=== PATIENT | male | born 1965 | race African-American/Black ===

== ENCOUNTER 2017-03-13 11:47 | Inpatient (IN) | payer BC, OTHER ==
[2017-03-13 12:49] VITALS: BMI 23.7
--- NOTE | 2017-03-13 17:33 | HP ---
COWS - Scale Resting Pulse: 0= [place] 80 or Below Sweatin= Chills/Flushing Restless Observation: 3= Extraneous Movement Pupil Size: 0= Normal to Room Light Bone or Joint Aches: 2= Severe Diffuse Aches Runny Nose/ Eye Tearin= Runny Nose/Eyes GI Upset > 30mins: 2= Nausea/Diarrhea Tremor Observation: 2= Slight Tremor Visible Yawning Observation: 0= None Anxiety or Irritability: 2=Irritable/Anxious Goose Flesh Skin: 0=Smooth Skin COWS Score: 14 Admission [facility] Chief Complaint: WITHDRAWAL SX Allergies/Adverse Reactions: Allergies Allergy/AdvReac Type Severity Reaction Status Date / Time No Known Allergies Allergy Verified 03/13/17 17:00 History of Present Illness: 51 YEARS OLD MALE WITH LONG HISTORY OF OPIATE NICOTINE DEPENDENCE DENIES MEDICAL ISSUE HAS DEPRESSION IS ADMITTED TO DETOX Exam Limitations: No Limitations - Ebola screening Have you traveled outside of the country in the last 21 days: No Have you had contact with anyone from an Ebola affected area: No Have you been sick,other than usual withdrawal symptoms: No Do you have a fever: No - Review of Systems Constitutional: Loss of Appetite, Changes in sleep, Unintentional Wgt. Loss, Unexplained wgt Loss EENT: reports: No Symptoms Reported Respiratory: reports: No Symptoms reported Cardiac: reports: No Symptoms Reported GI: reports: Nausea, Poor Appetite, Poor Fluid Intake, Abdominal cramping : reports: No Symptoms Reported Musculoskeletal: reports: Back Pain, Joint Pain, Muscle Pain, Neck Pain Integumentary: reports: Rash (LOWER BACK) Neuro: reports: Tremors Endocrine: reports: No Symptoms Reported Hematology: reports: No Symptoms Reported Psychiatric: reports: Judgement Intact, Orientated x3, Depressed Other Systems: Reviewed and Negative Patient History - Patient Medical History Hx Anemia: No Hx Asthma: No Hx Chronic Obstructive Pulmonary Disease (COPD): No Hx Cancer: No Hx Cardiac Disorders: No Hx Congestive Heart Failure: No Hx Hypertension: No Hx Hypercholesterolemia: No Hx Pacemaker: No HX Cerebrovascular Accident: No Hx Seizures: No Hx Dementia: No Hx Diabetes: No Hx Gastrointestinal Disorders: No Hx Liver Disease: No Hx Genitourinary Disorders: No Hx Sexually Transmitted Disorders: No Hx Renal Disease (ESRD): No Hx Thyroid Disease: No Hx Human Immunodeficiency Virus (HIV): No Hx Hepatitis C: No Hx Depression: Yes Hx Suicide Attempt: No Hx Bipolar Disorder: No Hx Schizophrenia: No - Patient Surgical History Past Surgical History: No Hx Neurologic Surgery: No Hx Cataract Extraction: No Hx Cardiac Surgery: No Hx Lung Surgery: No Hx Breast Surgery: No Hx Breast Biopsy: No Hx Abdominal Surgery: No Hx Appendectomy: No Hx Cholecystectomy: No Hx Genitourinary Surgery: No Hx Orthopedic Surgery: No - PPD History Previous Implant?: Yes Documented Results: Negative w/o proof Implanted On Prior R Admission?: No PPD to be Administered?: Yes - Smoking Cessation Smoking history: Current every day smoker Have you smoked in the past 12 months: Yes Aproximately how many cigarettes per day: 10 Cigars Per Day: 0 Hx Chewing Tobacco Use: No Initiated information on smoking cessation: Yes 'Breaking Loose' booklet given: 03/13/17 - Substance & Tx. History Hx Alcohol Use: No Hx Substance Use: Yes Substance Use Type: Opiates Hx Substance Use Treatment: Yes (01/2017 [facility]) - Substances Abused Heroin Route: Oral Frequency: Daily Amount used: 3 BAGS Age of first use: 20 Date of Last Use: 03/13/17 Family Disease History - Family Disease History Family Disease History: Heart Disease: Mother (), Other: Mother Admission Physical Exam S - Vital Signs Vital Signs: Vital Signs - 24 hr 03/13/17 12:47 Temperature 98.8 F Pulse Rate 75 Respiratory 18 Rate Blood Pressure 154/78 - Physical General Appearance: Yes: Appropriately Dressed, Mild Distress, Thin, Tremorous, Irritable, Sweating, Anxious HEENTM: Yes: Hearing grossly Normal, Normal ENT Inspection, Normocephalic, Normal Voice Respiratory: Yes: Chest Non-Tender, Lungs Clear, Normal Breath Sounds, No Respiratory Distress, No Accessory Muscle Use Neck: Yes: Supple, Trachea in good position Breast: Yes: Breasts Symetrical Cardiology: Yes: Regular Rhythm, Regular Rate, S1, S2 Abdominal: Yes: Non Tender, Soft Genitourinary: Yes: Within Normal Limits Back: Yes: Normal Inspection Musculoskeletal: Yes: full range of Motion, Gait Steady, Back pain, Muscle Pain Extremities: Yes: Normal Range of Motion, Non-Tender, Tremors Neurological: Yes: Fully Oriented, Alert, Motor Strength 5/5, Normal Response, Depressed Affect Integumentary: Yes: Warm, Rash (LOWER BACK) Lymphatic: Yes: Within Normal Limits - Diagnostic (1) Opioid dependence with withdrawal Current Visit: Yes Status: Acute (2) Weight loss Current Visit: Yes Status: Acute (3) Fungal rash of trunk Current Visit: Yes Status: Acute (4) Depression (emotion) Current Visit: Yes Status: Suspected Qualifiers: Depression Type: dysthymia Qualified Code(s): F34.1 - Dysthymic disorder (5) Nicotine dependence Current Visit: Yes Status: Acute Qualifiers: Nicotine product type: cigarettes Substance use status: in withdrawal Qualified Code(s): F17.213 - Nicotine dependence, cigarettes, with withdrawal Cleared for Admission S - Detox or Rehab [facility] Level of Care: Medically Managed Detox Regimen/Protocol: Methadone S Breath Alcohol Content Breath Alcohol Content: 0 Urine Drug Screen - Results Drug Screen Negative: No Urine Drug Screen Results: OPI-Opiates
[2017-03-13] MEDS ORDERED: IBUPROFEN 400 MG TABLET (FP) PO PRN (17:38)
[2017-03-13] MEDS ORDERED: LOPERAMIDE HCL 2 MG CAPSULE PO PRN (17:38)
[2017-03-13] MEDS ORDERED: MAG HYDROX/AL HYDROX/SIMETH 30 ML UNIT-DOSE CUP PO PRN (17:38)
[2017-03-13] MEDS ORDERED: P-EPHED 60MG/TRIPROLIDI 2.5MG TABLET PO PRN (17:38)
[2017-03-13] MEDS ORDERED: guaiFENesin/D-METHORPHAN HB 10 ML UNIT-DOSE CUPS PO PRN (17:38)
[2017-03-13] MEDS ORDERED: MAGNESIUM CITRATE 300 ML BOTTLE PO PRN (17:38)
[2017-03-13] MEDS ORDERED: diphenhydrAMINE HCL 50 MG CAPSULE PO PRN (17:38)
[2017-03-13] MEDS ORDERED: METHADONE HCL 10 MG TABLET (FOR DETOX USE ONLY) PO ONE ×2 (17:38→23:00)
[2017-03-13] MEDS ORDERED: MENTHOL/PHENOL 1 EACH UD MM PRN (17:38)
[2017-03-13] MEDS ORDERED: ACETAMINOPHEN 325 MG TABLET (FP) PO PRN (17:38)
[2017-03-13] MEDS ORDERED: MAGNESIUM HYDROX 2400MG/30ML ORAL SUSPENSION 30 ML CUP PO PRN (17:38)
[2017-03-13] MEDS ORDERED: NICOTINE POLACRILEX 2 MG GUM BC PRN (17:38)
[2017-03-13] MEDS: diazePAM 5 MG TABLET PO PRN (19:16)
[2017-03-13] MEDS: THIAMINE HCL 100 MG TABLET (FP) PO SCH (22:20)
[2017-03-13] MEDS: CLOTRIMAZOLE/BETAMET DIPROP 15 GM TUBE TP SCH (23:33)
--- NOTE | 2017-03-14 09:57 | PN ---
BHS COWS - Scale Resting Pulse: 0= [place] 80 or Below Sweatin= Chills/Flushing Restless Observation: 3= Extraneous Movement Pupil Size: 2= Moderately Dilated Bone or Joint Aches: 4=Acute Joint/Muscle Pain Runny Nose/ Eye Tearin= Nasal Congestion GI Upset > 30mins: 1= Stomach Cramp Tremor Observation of Outstretched Hands: 1= Tremor [place], Not Seen Yawning Observation: 2= >3x During Session Anxiety or Irritability: 2=Irritable/Anxious Goose Flesh Skin: 0=Smooth Skin COWS Score: 17 BHS Progress Note (SOAP) Subjective: ANXIETY,SWEATS, INTERMITTENT SLEEP. DENIED HX HTN. Objective: 03/14/17 09:59 Vital Signs Temperature 97.4 F L 03/14/17 09:27 Pulse Rate 71 03/14/17 09:27 Respiratory Rate 18 03/14/17 09:27 Blood Pressure 159/100 03/14/17 09:27 O2 Sat by Pulse Oximetry (%) LABS PENDING Assessment: 03/14/17 09:59 WITHDRAWAL SX Plan: CONTINUE DETOX START CLONIDINE 0.1 MG PO BID
[2017-03-14] MEDS ORDERED: METHADONE HCL 10 MG TABLET (FOR DETOX USE ONLY) PO ONE (10:00)
[2017-03-14 10:08] LABS: MCH 29.8 pg (25.7-33.7); MCHC 31.9 g/dl (32.0-35.9); MEAN CELL VOLUME 93.4 fl (80-96); MEAN PLT VOLUME 9.2 fl (7.5-11.1); PLATELET COUNT 218 K/MM3 (134-434); RDW 15.3 % (11.9-15.9); WHITE BLOOD COUNT 6.3 K/mm3 (4.0-10.0)
[2017-03-14] MEDS: NICOTINE 14 MG/24 HOURS TOPICAL PATCH TD SCH (10:19)
[2017-03-14] MEDS: PRENATAL VITAMINS W/ FOLIC ACID TABLET (FP) PO SCH (10:19)
[2017-03-14] MEDS: CLOTRIMAZOLE/BETAMET DIPROP 15 GM TUBE TP SCH ×2 (10:19→22:13)
[2017-03-14] MEDS: diazePAM 5 MG TABLET PO PRN (10:22)
[2017-03-14 10:43] LABS: ALBUMIN 3.3 g/dl (3.4-5.0); ALK PHOS 58 U/L (45-117); ANION GAP 9 (8-16); BILIRUBIN,TOTAL 0.4 mg/dL (0.2-1.0); CALCIUM 8.7 mg/dL (8.5-10.1); CO2 27 mmol/L (21-32); CREATININE 0.9 mg/dL (0.7-1.3); GLUCOSE,RANDOM 157 mg/dL (74-106); SGOT/AST 13 U/L (15-37); SGPT/ALT 21 U/L (12-78); TOT PROT 6.3 g/dl (6.4-8.2)
[2017-03-14 12:14] LABS: HIV 1 & 2 AB NEGATIVE; HIV 1 AGp24 NEGATIVE
[2017-03-14] MEDS: cloNIDine HCL 0.1 MG TABLET PO SCH ×2 (12:18→22:13)
--- NOTE | 2017-03-14 12:58 | EKG ---
Test Reason : Blood Pressure : / mmHG Vent. Rate : 075 BPM Atrial Rate : 075 BPM P-R Int : 160 ms QRS Dur : 094 ms QT Int : 418 ms P-R-T Axes : 072 070 023 degrees QTc Int : 466 ms NORMAL SINUS RHYTHM VOLTAGE CRITERIA FOR LEFT VENTRICULAR HYPERTROPHY ABNORMAL ECG NO PREVIOUS ECGS AVAILABLE Confirmed by LEONEL HOLT, CHULA ([id number]) on 03/14/2017 12:58:24 PM Referred By: Rajesh Mishra Confirmed By:CHULA CASTANEDA MD
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
[2017-03-14] MEDS: traZODone HCL 50 MG TABLET (FP) PO SCH (22:13)
[2017-03-14] MEDS: THIAMINE HCL 100 MG TABLET (FP) PO SCH (22:16)
[2017-03-15] MEDS ORDERED: METHADONE HCL 5 MG TABLET (FOR DETOX USE ONLY) PO ONE (10:00)
[2017-03-15] MEDS: cloNIDine HCL 0.1 MG TABLET PO SCH ×2 (10:22→22:09)
[2017-03-15] MEDS: PRENATAL VITAMINS W/ FOLIC ACID TABLET (FP) PO SCH (10:22)
[2017-03-15] MEDS: diazePAM 5 MG TABLET PO PRN ×2 (10:23→22:09)
[2017-03-15] MEDS: CLOTRIMAZOLE/BETAMET DIPROP 15 GM TUBE TP SCH ×2 (10:23→22:51)
[2017-03-15] MEDS: NICOTINE 14 MG/24 HOURS TOPICAL PATCH TD SCH (10:23)
--- NOTE | 2017-03-15 11:16 | PN ---
BHS COWS - Scale Resting Pulse: 0= [place] 80 or Below Sweatin= Chills/Flushing Restless Observation: 3= Extraneous Movement Pupil Size: 2= Moderately Dilated Bone or Joint Aches: 4=Acute Joint/Muscle Pain Runny Nose/ Eye Tearin= None GI Upset > 30mins: 0= None Tremor Observation of Outstretched Hands: 1= Tremor [place], Not Seen Yawning Observation: 1= 1-2x During Session Anxiety or Irritability: 2=Irritable/Anxious Goose Flesh Skin: 0=Smooth Skin COWS Score: 14 BHS Progress Note (SOAP) Subjective: ANXIETY,SWEATS,FATIGUE. Objective: 03/15/17 11:18 Vital Signs Temperature 98.0 F 03/15/17 10:12 Pulse Rate 79 03/15/17 10:12 Respiratory Rate 18 03/15/17 10:12 Blood Pressure 141/96 03/15/17 10:12 O2 Sat by Pulse Oximetry (%) Laboratory Last Values WBC 6.3 K/mm3 (4.0-10.0) 03/14/17 07:00 RBC 3.92 M/mm3 (4.00-5.60) L 03/14/17 07:00 Hgb 11.7 GM/dL (11.7-16.9) 03/14/17 07:00 Hct 36.7 % (35.4-49) 03/14/17 07:00 MCV 93.4 fl (80-96) 03/14/17 07:00 MCH 29.8 pg (25.7-33.7) 03/14/17 07:00 MCHC 31.9 g/dl (32.0-35.9) L 03/14/17 07:00 RDW 15.3 % (11.9-15.9) 03/14/17 07:00 Plt Count 218 K/MM3 (134-434) 03/14/17 07:00 MPV 9.2 fl (7.5-11.1) 03/14/17 07:00 Sodium 139 mmol/L (136-145) 03/14/17 07:00 Potassium 3.9 mmol/L (3.5-5.1) 03/14/17 07:00 Chloride 103 mmol/L (98-107) 03/14/17 07:00 Carbon Dioxide 27 mmol/L (21-32) 03/14/17 07:00 Anion Gap 9 (8-16) 03/14/17 07:00 BUN 12 mg/dL (7-18) 03/14/17 07:00 Creatinine 0.9 mg/dL (0.7-1.3) 03/14/17 07:00 Creat Clearance w eGFR > 60 (>60) 03/14/17 07:00 Random Glucose 157 mg/dL (74-106) H 03/14/17 07:00 Calcium 8.7 mg/dL (8.5-10.1) 03/14/17 07:00 Total Bilirubin 0.4 mg/dL (0.2-1.0) 03/14/17 07:00 AST 13 U/L (15-37) L 03/14/17 07:00 ALT 21 U/L (12-78) 03/14/17 07:00 Alkaline Phosphatase 58 U/L (45-117) 03/14/17 07:00 Total Protein 6.3 g/dl (6.4-8.2) L 03/14/17 07:00 Albumin 3.3 g/dl (3.4-5.0) L 03/14/17 07:00 RPR Titer Nonreactive (NONREACTIVE) 03/14/17 07:00 Hepatitis C Antibody <0.1 s/co ratio (0.0-0.9) 03/13/17 07:00 HIV 1&2 Antibody Screen Negative 03/14/17 07:00 HIV P24 Antigen Negative 03/14/17 07:00 Assessment: 03/15/17 11:18 WITHDRAWAL SX Plan: CONTINUE DETOX
[2017-03-15] MEDS: traZODone HCL 50 MG TABLET (FP) PO SCH (22:09)
[2017-03-15] MEDS: THIAMINE HCL 100 MG TABLET (FP) PO SCH (22:09)
[2017-03-16] MEDS ORDERED: METHADONE HCL 5 MG TABLET (FOR DETOX USE ONLY) PO ONE (10:00)
[2017-03-16] MEDS: PRENATAL VITAMINS W/ FOLIC ACID TABLET (FP) PO SCH (10:15)
[2017-03-16] MEDS: cloNIDine HCL 0.1 MG TABLET PO SCH ×2 (10:15→22:17)
[2017-03-16] MEDS: NICOTINE 14 MG/24 HOURS TOPICAL PATCH TD SCH (10:16)
[2017-03-16] MEDS: CLOTRIMAZOLE/BETAMET DIPROP 15 GM TUBE TP SCH ×2 (10:16→22:19)
[2017-03-16] MEDS: diazePAM 5 MG TABLET PO PRN (10:16)
--- NOTE | 2017-03-16 10:43 | PN ---
BHS Progress Note (SOAP) Subjective: ANXIETY,SWEATS. OOB AMBULATING ON HALLWAY. ALERT O X 3. NAD. Objective: 03/16/17 10:42 Vital Signs Temperature 96.8 F L 03/16/17 10:34 Pulse Rate 87 03/16/17 10:34 Respiratory Rate 18 03/16/17 10:34 Blood Pressure 139/90 03/16/17 10:34 O2 Sat by Pulse Oximetry (%) Laboratory Last Values WBC 6.3 K/mm3 (4.0-10.0) 03/14/17 07:00 RBC 3.92 M/mm3 (4.00-5.60) L 03/14/17 07:00 Hgb 11.7 GM/dL (11.7-16.9) 03/14/17 07:00 Hct 36.7 % (35.4-49) 03/14/17 07:00 MCV 93.4 fl (80-96) 03/14/17 07:00 MCH 29.8 pg (25.7-33.7) 03/14/17 07:00 MCHC 31.9 g/dl (32.0-35.9) L 03/14/17 07:00 RDW 15.3 % (11.9-15.9) 03/14/17 07:00 Plt Count 218 K/MM3 (134-434) 03/14/17 07:00 MPV 9.2 fl (7.5-11.1) 03/14/17 07:00 Sodium 139 mmol/L (136-145) 03/14/17 07:00 Potassium 3.9 mmol/L (3.5-5.1) 03/14/17 07:00 Chloride 103 mmol/L (98-107) 03/14/17 07:00 Carbon Dioxide 27 mmol/L (21-32) 03/14/17 07:00 Anion Gap 9 (8-16) 03/14/17 07:00 BUN 12 mg/dL (7-18) 03/14/17 07:00 Creatinine 0.9 mg/dL (0.7-1.3) 03/14/17 07:00 Creat Clearance w eGFR > 60 (>60) 03/14/17 07:00 Random Glucose 157 mg/dL (74-106) H 03/14/17 07:00 Calcium 8.7 mg/dL (8.5-10.1) 03/14/17 07:00 Total Bilirubin 0.4 mg/dL (0.2-1.0) 03/14/17 07:00 AST 13 U/L (15-37) L 03/14/17 07:00 ALT 21 U/L (12-78) 03/14/17 07:00 Alkaline Phosphatase 58 U/L (45-117) 03/14/17 07:00 Total Protein 6.3 g/dl (6.4-8.2) L 03/14/17 07:00 Albumin 3.3 g/dl (3.4-5.0) L 03/14/17 07:00 RPR Titer Nonreactive (NONREACTIVE) 03/14/17 07:00 Hepatitis C Antibody <0.1 s/co ratio (0.0-0.9) 03/13/17 07:00 HIV 1&2 Antibody Screen Negative 03/14/17 07:00 HIV P24 Antigen Negative 03/14/17 07:00 Assessment: 03/16/17 10:42 WITHDRAWAL SX Plan: CONTINUE DETOX
[2017-03-16] MEDS: THIAMINE HCL 100 MG TABLET (FP) PO SCH (22:17)
[2017-03-16] MEDS: traZODone HCL 50 MG TABLET (FP) PO SCH (22:17)
[2017-03-17 09:51] VITALS: BP 129/86; PULSE 84; TEMP 97.2
[2017-03-17] MEDS ORDERED: METHADONE HCL 10 MG TABLET (FOR DETOX USE ONLY) PO ONE (10:00)
[2017-03-17] MEDS: PRENATAL VITAMINS W/ FOLIC ACID TABLET (FP) PO SCH (10:19)
[2017-03-17] MEDS: cloNIDine HCL 0.1 MG TABLET PO SCH (10:19)
[2017-03-17] MEDS: CLOTRIMAZOLE/BETAMET DIPROP 15 GM TUBE TP SCH (10:20)
[2017-03-17] MEDS: NICOTINE 14 MG/24 HOURS TOPICAL PATCH TD SCH (10:20)
[2017-03-17] MEDS ORDERED: METHADONE HCL 5 MG TABLET (FOR DETOX USE ONLY) PO ONE (11:00)
[2017-03-18] MEDS ORDERED: METHADONE HCL 5 MG TABLET (FOR DETOX USE ONLY) PO ONE (06:00)
--- NOTE | 2017-03-18 15:14 | DS ---
[facility] Detox Discharge Summary Admission Date: 03/13/17 Discharge Date: 03/17/17 - History Present History: Opioid Dependence Additional Comments: PATIENT GOING TO [facility] FOR AFTERCARE. PATIENT ADVISED TO FOLLOW -UP THERE PER DISCHARGE ARRANGEMENT. PATIENT DISCHARGED FROM DETOX UNIT IN STABLE MEDICAL CONDITION. Pertinent Past History: Insomnia, Depression, Fungal Rash of trunk. - Physical Exam Results Vital Signs: Vital Signs Temperature 97.2 F L 03/17/17 09:50 Pulse Rate 84 03/17/17 09:50 Respiratory Rate 18 03/17/17 09:50 Blood Pressure 129/86 03/17/17 09:50 O2 Sat by Pulse Oximetry (%) Pertinent Admission Physical Exam Findings: WITHDRAWAL SYMPTOMS. Laboratory Tests 03/13/17 03/14/17 03/14/17 07:00 07:00 07:00 WBC 6.3 RBC 3.92 L Hgb 11.7 Hct 36.7 MCV 93.4 MCH 29.8 MCHC 31.9 L RDW 15.3 Plt Count 218 MPV 9.2 Sodium Potassium Chloride Carbon Dioxide Anion Gap BUN Creatinine Creat Clearance w eGFR Random Glucose Calcium Total Bilirubin AST ALT Alkaline Phosphatase Total Protein Albumin RPR Titer Hepatitis C Antibody <0.1 HIV 1&2 Antibody Screen Negative HIV P24 Antigen Negative 03/14/17 03/14/17 07:00 07:00 WBC RBC Hgb Hct MCV MCH MCHC RDW Plt Count MPV Sodium 139 Potassium 3.9 Chloride 103 Carbon Dioxide 27 Anion Gap 9 BUN 12 Creatinine 0.9 Creat Clearance w eGFR > 60 Random Glucose 157 H Calcium 8.7 Total Bilirubin 0.4 AST 13 L ALT 21 Alkaline Phosphatase 58 Total Protein 6.3 L Albumin 3.3 L RPR Titer Nonreactive Hepatitis C Antibody HIV 1&2 Antibody Screen HIV P24 Antigen LABS NOTED. - Treatment Hospital Course: Detox Protocol Followed, Detoxed Safely, Responded well, Discharged Condition Good, Rehab Referral Accepted Patient has Accepted a Rehab Referral to: [facility]. - Medication Discharge Medications: Ambulatory Orders Trazodone HCl [Desyrel -] 50 mg PO HS #30 tablet 03/14/17 - Diagnosis (1) Fungal rash of trunk Status: Acute (2) Insomnia Status: Acute Qualifiers: Insomnia type: unspecified Qualified Code(s): G47.00 - Insomnia, unspecified (3) Nicotine dependence Status: Chronic Qualifiers: Nicotine product type: cigarettes Substance use status: in withdrawal Qualified Code(s): F17.213 - Nicotine dependence, cigarettes, with withdrawal (4) Opioid dependence with withdrawal Status: Acute (5) Substance induced mood disorder Status: Acute (6) Weight loss Status: Acute (7) Depression (emotion) Status: Suspected Qualifiers: Depression Type: dysthymia Qualified Code(s): F34.1 - Dysthymic disorder - AMA Did Patient Leave Against Medical Advice: No
== END 2017-03-17 14:12 | disposition other institution (70) | DRG 773 ==
LOC: YASAS 11:47 → Y3N 18:36
PROVIDERS: ADMIT Internal Medicine; ATTEND Internal Medicine
PROC: HZ2ZZZZ Detoxification Services for Substance Abuse Treatment (ICD-10-PCS; principal; 2017-03-17)
DX: F11.23 Opioid dependence with withdrawal (principal); F17.213 Nicotine dependence, cigarettes, with withdrawal; F19.24 Other psychoactive substance dependence with psychoactive substance-induced mood disorder; G47.00 Insomnia, unspecified; B49 Unspecified mycosis
CPT/HCPCS: 36415; 80053; 85027; 86593; 86803; 87389; 93005; 93010

== ENCOUNTER 2017-03-17 15:13 | Inpatient (IN) | payer BC ==
[2017-03-17] MEDS ORDERED: MAG HYDROX/AL HYDROX/SIMETH 30 ML UNIT-DOSE CUP PO PRN (15:33)
[2017-03-17] MEDS ORDERED: IBUPROFEN 400 MG TABLET (FP) PO PRN (15:33)
[2017-03-17] MEDS ORDERED: hydrOXYzine PAMOATE 25 MG CAPSULE (FP) PO PRN (15:33)
[2017-03-17] MEDS ORDERED: LOPERAMIDE HCL 2 MG CAPSULE PO PRN (15:33)
[2017-03-17] MEDS ORDERED: MAGNESIUM HYDROX 2400MG/30ML ORAL SUSPENSION 30 ML CUP PO PRN (15:33)
[2017-03-17] MEDS ORDERED: MENTHOL/PHENOL 1 EACH UD MM PRN (15:33)
[2017-03-17] MEDS ORDERED: guaiFENesin/D-METHORPHAN HB 10 ML UNIT-DOSE CUPS PO PRN (15:33)
[2017-03-17] MEDS ORDERED: ACETAMINOPHEN 325 MG TABLET (FP) PO PRN (15:33)
[2017-03-17] MEDS ORDERED: P-EPHED 60MG/TRIPROLIDI 2.5MG TABLET PO PRN (15:33)
[2017-03-17] MEDS ORDERED: MAGNESIUM CITRATE 300 ML BOTTLE PO PRN (15:33)
--- NOTE | 2017-03-17 15:38 | HP ---
TIFFANY HOLT Rehab Assess/Revision - Admission History Admitted to Rehab from: [facility] Date of Admission to Rehab: 03/17/17 - Vital signs Vital Signs: Vital Signs Period Temp Pulse Resp BP Sys/Justice Pulse Ox Last 24 Hr 98.3 F-98.3 F 94-94 18-18 122-122/74-74 - Findings Detox History & Physical reviewed: Yes Concur with findings: Yes Comments/Additional Findings: FOR REHAB PROTOCOL
[2017-03-17] MEDS: traZODone HCL 50 MG TABLET (FP) PO SCH (21:37)
[2017-03-17] MEDS: diphenhydrAMINE HCL 50 MG CAPSULE PO PRN (21:37)
[2017-03-17] MEDS: THIAMINE HCL 100 MG TABLET (FP) PO SCH (21:37)
[2017-03-17] MEDS: CLOTRIMAZOLE/BETAMET DIPROP TOPICAL CREAM 45 GM TUBE TP SCH (22:53)
[2017-03-18] MEDS: PRENATAL VITAMINS W/ FOLIC ACID TABLET (FP) PO SCH (10:28)
[2017-03-18] MEDS: NICOTINE 14 MG/24 HOURS TOPICAL PATCH TD SCH (10:29)
[2017-03-18] MEDS: CLOTRIMAZOLE/BETAMET DIPROP TOPICAL CREAM 45 GM TUBE TP SCH ×2 (10:29→21:55)
[2017-03-18] MEDS: diphenhydrAMINE HCL 50 MG CAPSULE PO PRN (21:55)
[2017-03-18] MEDS: THIAMINE HCL 100 MG TABLET (FP) PO SCH (21:55)
[2017-03-18] MEDS: traZODone HCL 50 MG TABLET (FP) PO SCH (21:55)
[2017-03-19] MEDS: NICOTINE 14 MG/24 HOURS TOPICAL PATCH TD SCH (10:59)
[2017-03-19] MEDS: PRENATAL VITAMINS W/ FOLIC ACID TABLET (FP) PO SCH (10:59)
[2017-03-19] MEDS: CLOTRIMAZOLE/BETAMET DIPROP TOPICAL CREAM 45 GM TUBE TP SCH ×2 (10:59→21:51)
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
[2017-03-19] MEDS: traZODone HCL 50 MG TABLET (FP) PO SCH (21:51)
[2017-03-19] MEDS: THIAMINE HCL 100 MG TABLET (FP) PO SCH (21:51)
[2017-03-20] MEDS: NICOTINE 14 MG/24 HOURS TOPICAL PATCH TD SCH (11:06)
[2017-03-20] MEDS: PRENATAL VITAMINS W/ FOLIC ACID TABLET (FP) PO SCH (11:06)
[2017-03-20] MEDS: CLOTRIMAZOLE/BETAMET DIPROP TOPICAL CREAM 45 GM TUBE TP SCH ×2 (11:06→21:43)
[2017-03-20] MEDS: THIAMINE HCL 100 MG TABLET (FP) PO SCH (21:43)
[2017-03-20] MEDS: traZODone HCL 50 MG TABLET (FP) PO SCH (21:43)
[2017-03-21] MEDS: PRENATAL VITAMINS W/ FOLIC ACID TABLET (FP) PO SCH (10:15)
[2017-03-21] MEDS: CLOTRIMAZOLE/BETAMET DIPROP TOPICAL CREAM 45 GM TUBE TP SCH ×2 (10:16→21:53)
[2017-03-21] MEDS: NICOTINE 14 MG/24 HOURS TOPICAL PATCH TD SCH (10:16)
[2017-03-21] MEDS: traZODone HCL 50 MG TABLET (FP) PO SCH (21:52)
[2017-03-21] MEDS: THIAMINE HCL 100 MG TABLET (FP) PO SCH (21:52)
[2017-03-22] MEDS: NICOTINE 14 MG/24 HOURS TOPICAL PATCH TD SCH (10:35)
[2017-03-22] MEDS: PRENATAL VITAMINS W/ FOLIC ACID TABLET (FP) PO SCH (10:35)
[2017-03-22] MEDS: CLOTRIMAZOLE/BETAMET DIPROP TOPICAL CREAM 45 GM TUBE TP SCH ×2 (10:35→22:05)
[2017-03-22] MEDS ORDERED: PT OWN MED DRAWER 7, Y5N ONE (20:48)
[2017-03-22] MEDS: traZODone HCL 50 MG TABLET (FP) PO SCH (22:05)
[2017-03-22] MEDS: diphenhydrAMINE HCL 50 MG CAPSULE PO PRN (22:05)
[2017-03-22] MEDS: THIAMINE HCL 100 MG TABLET (FP) PO SCH (22:05)
[2017-03-23] MEDS: NICOTINE 14 MG/24 HOURS TOPICAL PATCH TD SCH (10:50)
[2017-03-23] MEDS: CLOTRIMAZOLE/BETAMET DIPROP TOPICAL CREAM 45 GM TUBE TP SCH ×2 (10:50→21:44)
[2017-03-23] MEDS: PRENATAL VITAMINS W/ FOLIC ACID TABLET (FP) PO SCH (10:50)
[2017-03-23] MEDS: THIAMINE HCL 100 MG TABLET (FP) PO SCH (21:44)
[2017-03-23] MEDS: traZODone HCL 50 MG TABLET (FP) PO SCH (21:44)
[2017-03-24] MEDS: NICOTINE 14 MG/24 HOURS TOPICAL PATCH TD SCH (10:31)
[2017-03-24] MEDS: PRENATAL VITAMINS W/ FOLIC ACID TABLET (FP) PO SCH (10:31)
[2017-03-24] MEDS: CLOTRIMAZOLE/BETAMET DIPROP TOPICAL CREAM 45 GM TUBE TP SCH ×2 (10:31→21:41)
[2017-03-24] MEDS: traZODone HCL 50 MG TABLET (FP) PO SCH (21:40)
[2017-03-24] MEDS: THIAMINE HCL 100 MG TABLET (FP) PO SCH (21:41)
[2017-03-25] MEDS: diphenhydrAMINE HCL 50 MG CAPSULE PO PRN ×2 (01:16→21:38)
[2017-03-25] MEDS: NICOTINE 14 MG/24 HOURS TOPICAL PATCH TD SCH (10:31)
[2017-03-25] MEDS: PRENATAL VITAMINS W/ FOLIC ACID TABLET (FP) PO SCH (10:31)
[2017-03-25] MEDS: CLOTRIMAZOLE/BETAMET DIPROP TOPICAL CREAM 45 GM TUBE TP SCH ×2 (10:31→21:38)
[2017-03-25] MEDS: THIAMINE HCL 100 MG TABLET (FP) PO SCH (21:38)
[2017-03-25] MEDS: traZODone HCL 50 MG TABLET (FP) PO SCH (21:38)
[2017-03-26] MEDS: CLOTRIMAZOLE/BETAMET DIPROP TOPICAL CREAM 45 GM TUBE TP SCH ×2 (10:24→22:01)
[2017-03-26] MEDS: PRENATAL VITAMINS W/ FOLIC ACID TABLET (FP) PO SCH (10:24)
[2017-03-26] MEDS: NICOTINE 14 MG/24 HOURS TOPICAL PATCH TD SCH (10:24)
[2017-03-26] MEDS: traZODone HCL 50 MG TABLET (FP) PO SCH (21:59)
[2017-03-26] MEDS: THIAMINE HCL 100 MG TABLET (FP) PO SCH (21:59)
[2017-03-26] MEDS: diphenhydrAMINE HCL 50 MG CAPSULE PO PRN (21:59)
[2017-03-27 06:48] VITALS: PULSE 96; TEMP 97.9
[2017-03-27] MEDS: NICOTINE 14 MG/24 HOURS TOPICAL PATCH TD SCH (10:34)
[2017-03-27] MEDS: PRENATAL VITAMINS W/ FOLIC ACID TABLET (FP) PO SCH (10:34)
[2017-03-27] MEDS: CLOTRIMAZOLE/BETAMET DIPROP TOPICAL CREAM 45 GM TUBE TP SCH ×2 (11:53→21:50)
[2017-03-27 18:05] LABS: URINE APPEARANCE CLEAR; URINE BILIRUBIN NEGATIVE (NEGATIVE); URINE BLOOD NEGATIVE (NEGATIVE); URINE COLOR LTYELLOW; URINE GLUCOSE (UA) NEGATIVE (NEGATIVE); URINE KETONE NEGATIVE (NEGATIVE); URINE LEUK ESTERASE NEGATIVE (NEGATIVE); URINE NITRITE NEGATIVE (NEGATIVE); URINE PROTEIN NEGATIVE (NEGATIVE); URINE UROBILINOGEN NEGATIVE mg/dL (0.2-1.0)
[2017-03-27] MEDS: THIAMINE HCL 100 MG TABLET (FP) PO SCH (21:49)
[2017-03-27] MEDS: traZODone HCL 50 MG TABLET (FP) PO SCH (21:49)
[2017-03-27] MEDS: diphenhydrAMINE HCL 50 MG CAPSULE PO PRN (21:50)
[2017-03-28 07:05] VITALS: BP 126/88
--- NOTE | 2017-03-28 10:05 | PN ---
Psychiatric Progress Note Vital Signs: Vital Signs Period Temp Pulse Resp BP Sys/Justice Pulse Ox Last 24 Hr 97.9 F 96 16-18 126/88 Date of Session: 03/28/17 Chief Complaint:: discharge visit HPI: Patient has addressed cannabis, nicotine, opioid dependence comorbid Substance induced mood diosrder. ROS: WNL Current Medications: Active Medications Generic Name Dose Route Start Last Admin Trade Name Freq PRN Reason Stop Dose Admin Acetaminophen 650 mg 03/17/17 15:33 Tylenol - PO Q4H PRN FEVER OR PAIN Al Hydroxide/Mg Hydroxide 30 ml 03/17/17 15:33 Mylanta Oral Suspension - PO Q6H PRN DYSPEPSIA Clotrimazole 1 applic 03/17/17 22:00 03/27/17 21:50 Lotrisone Cream (Large Tube) - TP 1 applic BID BRIGIDA Administration Diphenhydramine HCl 50 mg 03/17/17 15:33 03/27/17 21:50 Benadryl - PO 50 mg HSMR1 PRN Administration FOR ITCHING Eucalyptus/Menthol/Phenol/Sorbitol 1 each 03/17/17 15:33 Cepastat Lozenge - MM Q4H PRN SORE THROAT Guaifenesin 10 ml 03/17/17 15:33 Robitussin Dm - PO Q6H PRN COUGH Hydroxyzine Pamoate 25 mg 03/17/17 15:33 Vistaril - PO Q4H PRN AGITATION Ibuprofen 400 mg 03/17/17 15:33 Motrin - PO Q6H PRN PAIN Loperamide HCl 4 mg 03/17/17 15:33 Imodium - PO Q6H PRN DIARRHEA Magnesium Hydroxide 30 ml 03/17/17 15:33 Milk Of Magnesia - PO DAILY PRN CONSTIPATION Nicotine 14 mg 03/18/17 10:00 03/27/17 10:34 Nicoderm Patch - TD Not Given DAILY [facility] Multivit/Folic Acid/Iron 1 tab 03/18/17 10:00 03/27/17 10:34 Vitamins (Sjr) - PO 1 tab DAILY BRIGIDA Administration Pseudoephedrine/Triprolidine 1 combo 03/17/17 15:33 Actifed - PO TID PRN NASAL CONGESTION Thiamine HCl 100 mg 03/17/17 22:00 03/27/17 21:49 Vitamin B1 - PO 100 mg HS BRIGIDA Administration Trazodone HCl 50 mg 03/17/17 22:00 03/27/17 21:49 Desyrel - PO 50 mg HS BRIGIDA Administration Current Side Effect: No Lab tests ordered: No Lab tests reviewed: Yes Provider note:: Patient has completed today his treatment and met his identified goals, will continue to address his issues at [facility] longterm inpatient treatment. He gained insights on his addiction and motivated to continue maintain abstinence. He was educated on his addiction, implications and consequences on his physical and mental health, the importance to maintain sobriety, educated on smoking cessation. Trazodone well tolerated , patient reports his sleep is improved. Scripts provided for 30 days. Supportive psychotherapy provided, patient is stable for discharge today Total face to face time:: 25 Mental Status Exam - Mental Status Exam Alert and Oriented to: Time, Place, Person Cognitive Function: Good Patient Appearance: Well Groomed Mood: Hopeful Affect: Appropriate, Mood Congruent Patient Behavior: Appropriate, Cooperative Speech Pattern: Clear, Appropriate Voice Loudness: Normal Thought Process: Intact, Goal Oriented Thought Disorder: Not Present Hallucinations: Denies Suicidal Ideation: Denies Homicidal Ideation: Denies Insight/Judgement: Fair Sleep: Well Appetite: Good Muscle strength/Tone: Normal Gait/Station: Normal Psychiatric Treatment Plan - Problem List (1) Substance induced mood disorder Current Visit: No (2) Nicotine dependence Current Visit: No Qualifiers: Nicotine product type: cigarettes Substance use status: in withdrawal Qualified Code(s): F17.213 - Nicotine dependence, cigarettes, with withdrawal (3) Cannabis dependence Current Visit: Yes (4) Opioid dependence Current Visit: Yes
[2017-03-28] MEDS: PRENATAL VITAMINS W/ FOLIC ACID TABLET (FP) PO SCH (10:47)
[2017-03-28] MEDS: NICOTINE 14 MG/24 HOURS TOPICAL PATCH TD SCH (10:47)
[2017-03-28] MEDS: CLOTRIMAZOLE/BETAMET DIPROP TOPICAL CREAM 45 GM TUBE TP SCH (10:47)
== END 2017-03-28 11:00 | disposition home or self-care (01) | DRG 772 ==
LOC: YASAS 15:13 → Y5N 15:14
PROVIDERS: ADMIT Psychiatry & Neurology Psychiatry; ATTEND Psychiatry & Neurology Psychiatry
PROC: HZ42ZZZ Group Counseling for Substance Abuse Treatment, Cognitive-Behavioral (ICD-10-PCS; principal; 2017-03-17)
DX: F11.20 Opioid dependence, uncomplicated (principal); F14.20 Cocaine dependence, uncomplicated; F17.213 Nicotine dependence, cigarettes, with withdrawal; F19.24 Other psychoactive substance dependence with psychoactive substance-induced mood disorder
CPT/HCPCS: 81003